=== PATIENT | female | born 1945 | race Caucasian/White ===

== ENCOUNTER 2019-06-25 08:29 | Day surgery (SDC) | payer MEDICARE, OTHER ==
[2019-06-25] MEDS: Polymyxin B/Trimethoprim 10 ML Bottle EYERT SCH ×4 (08:47→10:12)
[2019-06-25] MEDS: Brimonidine 0.2% Ophth Soln 15 ML Bottle EYERT SCH ×4 (08:56→10:12)
[2019-06-25] MEDS: Phenylephrine 2.5% Ophth Soln 2 ML Bot EYERT SCH ×6 (09:00→09:50)
--- NOTE | 2019-06-25 09:03 | PCM.PREANE ---
Preanesthetic Assessment - Anesthesia/Transfusion/Family Hx Anesthesia History: Prior Anesthesia Without Reaction Family History of Anesthesia Reaction: No Transfusion History: No Prior Transfusion(s) - Review of Systems General: Fatigue Pulmonary: No Symptoms (Daily Smoker. Occasional dry cough. ) Cardiovascular: No Symptoms (Hypertension, Elevated Cholesterol. Irregular heart beats once at her apointemnt, monitored and nothing was found. ) Gastrointestinal: No Symptoms Neurological: No Symptoms Other: Reports: None (Rheumatoid arthritis), Thyroid Problems (Hypothyroidism), Depression, Anxiety - Physical Assessment NPO Status Date: 06/24/19 NPO Status Time: 18:00 Vital Signs: 97.9F 132/78 63 96% 16 Height: 1.55 m Weight: 47.627 kg ASA Class: 2 Mental Status: Alert & Oriented x3 Airway Class: Mallampati = 2 Thyro-Mental Finger Breadths: 3 Mouth Opening Finger Breadths: 3 ROM/Head Extension: Full Lungs: Clear to Auscultation, Normal Respiratory Effort, Decreased Breath Sounds Cardiovascular: Regular Rate, Regular Rhythm - Allergies Allergies/Adverse Reactions: Allergies Allergy/AdvReac Type Severity Reaction Status Date / Time Penicillins Allergy Rash Verified 06/24/19 10:49 - Acknowledgements Anesthesia Type Planned: MAC Pt an Appropriate Candidate for the Planned Anesthesia: Yes Alternatives and Risks of Anesthesia Discussed w Pt/Guardian: Yes Pt/Guardian Understands and Agrees with Anesthesia Plan: Yes PreAnesthesia Questionnaire - HOME MEDS Home Medications: Home Meds Levothyroxine [Synthroid] 100 mcg PO DAILY 05/27/19 [History] PARoxetine HCl [Paroxetine HCl] 30 mg PO BEDTIME 05/27/19 [History] Simvastatin 20 mg PO DAILY 05/27/19 [History] clonazePAM [Clonazepam] 1 mg PO BID 05/27/19 [History] hydrOXYzine pamoate [Hydroxyzine Pamoate] 50 mg PO BEDTIME 05/27/19 [History] - CURRENT (IN HOUSE) MEDS Current Meds: Current Medications Brimonidine Tartrate (Brimonidine Tartrate 0.2% Ophth Soln) 0 ml EYERT ASDIRECTED JOS Stop: 06/25/19 18:01 Last Admin: 06/25/19 08:56 Dose: 1 drop Cefuroxime Sodium (Zinacef) 0 mg EYERT ASDIRECTED JOS Stop: 06/25/19 18:00 Lidocaine HCl (Xylocaine-Mpf 1%) 0 ml INJECT ASDIRECTED JOS Stop: 06/25/19 18:00 Phenylephrine HCl (Jose De Jesus-Synephrine 2.5% Ophth Soln) 0 ml EYERT ASDIRECTED JOS Stop: 06/25/19 18:00 Pilocarpine HCl (Pilocar 4% Ophth Soln) 0 ml EYERT ASDIRECTED JOS Stop: 06/25/19 18:00 Polymyxin/Trimethoprim Sulfate (Polytrim Ophth Soln) 0 ml EYERT ASDIRECTED JOS Stop: 06/25/19 18:00 Last Admin: 06/25/19 08:47 Dose: 1 drop Tetracaine HCl (Tetracaine 0.5% Steri-Unit Leana) 0 ml EYERT ASDIRECTED JOS Stop: 06/25/19 18:00 Tropicamide (Mydriacyl 1% Oph Soln) 0 ml EYERT ASDIRECTED JOS Stop: 06/25/19 18:00
[2019-06-25] MEDS: Tropicamide 1% Ophth Soln 15 ML Bottle EYERT SCH ×4 (09:04→09:38)
[2019-06-25] MEDS: Lidocaine 1% PF 2 ML SDV INJECT SCH ×2 (09:36→09:56)
[2019-06-25] MEDS: Tetracaine HCl/PF 0.5% 4 ML Bottle EYERT SCH ×3 (09:36→09:57)
[2019-06-25] MEDS: Cefuroxime 10 MG/ML SYRINGE EYERT SCH ×2 (09:37→10:11)
[2019-06-25] MEDS: Pilocarpine 4% Ophth Soln 15 ML Bot EYERT SCH ×2 (09:37→10:12)
--- NOTE | 2019-06-25 10:17 | PCM48HPAN ---
Post Anesthesia Note - EVALUATION WITHIN 48HRS OF ANESTHETIC Vital Signs in Normal Range: Yes Patient Participated in Evaluation: Yes Respiratory Function Stable: Yes Airway Patent: Yes Cardiovascular Function Stable: Yes Hydration Status Stable: Yes Pain Control Satisfactory: Yes Nausea and Vomiting Control Satisfactory: Yes Mental Status Recovered: Yes Vital Signs: Last Vital Signs Temp 36.6 C 06/25/19 08:30 Pulse 63 06/25/19 08:30 Resp 16 06/25/19 08:30 BP 132/78 06/25/19 08:30 Pulse Ox 96 06/25/19 08:30
== END 2019-06-25 10:25 | disposition home or self-care (01) ==
LOC: JD.SDS 08:29
PROVIDERS: ATTEND Ophthalmology
DX: H25.811 Combined forms of age-related cataract, right eye (principal); H21.81 Floppy iris syndrome; H35.373 Puckering of macula, bilateral; H35.341 Macular cyst, hole, or pseudohole, right eye; H02.834 Dermatochalasis of left upper eyelid; H02.831 Dermatochalasis of right upper eyelid; M19.90 Unspecified osteoarthritis, unspecified site; I10 Essential (primary) hypertension; E78.00 Pure hypercholesterolemia, unspecified; E03.9 Hypothyroidism, unspecified; F17.210 Nicotine dependence, cigarettes, uncomplicated; F41.9 Anxiety disorder, unspecified; F32.9 Major depressive disorder, single episode, unspecified; Z96.1 Presence of intraocular lens; Z79.899 Other long term (current) drug therapy; Z88.0 Allergy status to penicillin
CPT/HCPCS: 66982; C1780; J0697; J2001

== ENCOUNTER 2019-07-20 21:46 | Emergency (ER) | payer MEDICARE, OTHER ==
[2019-07-20] MEDS ORDERED: Lidocaine 1% 20 ML MDV INJECT ONE (22:22)
--- NOTE | 2019-07-20 22:23 | EDM.PDOC ---
ED HPI GENERAL MEDICAL PROBLEM - General Chief Complaint: Laceration Stated Complaint: FELL INTO GLASS [place] CABINIET BACK AND ARM LAC Time Seen by Provider: 07/20/19 22:02 Source of Information: Reports: Patient History Limitations: Reports: No Limitations - History of Present Illness INITIAL COMMENTS - FREE TEXT/NARRATIVE: This is a 74-year-old female. Apparently she fell backwards down some steps did not hit her head there was no loss of consciousness when she got to the bottom she landed on her buttocks and then fell back against a china cabinet. Causing a 8 cm laceration to her left upper back and multiple skin tears on her right upper extremity. She denies any neck pain or back pain. She does have a small abrasion to her left posterior parietal area as well. She says she feels fine she just has the skin tears and this cut. She states she is up-to-date with her tetanus. - Related Data Allergies Allergy/AdvReac Type Severity Reaction Status Date / Time Penicillins Allergy Rash Verified 07/20/19 21:58 Home Meds: Home Meds Levothyroxine [Synthroid] 100 mcg PO DAILY 05/27/19 [History] PARoxetine HCl [Paroxetine HCl] 30 mg PO BEDTIME 05/27/19 [History] Simvastatin 20 mg PO DAILY 05/27/19 [History] clonazePAM [Clonazepam] 1 mg PO BID 05/27/19 [History] hydrOXYzine pamoate [Hydroxyzine Pamoate] 50 mg PO BEDTIME 05/27/19 [History] Past Medical History HEENT History: Reports: Cataract [employer] History: Reports: Endocrine/Metabolic History: Reports: Hypothyroidism - Past Surgical History HEENT Surgical History: Reports: Cataract Surgery, Tonsillectomy GI Surgical History: Reports: Colonoscopy, Hernia, Abdominal, Polypectomy Female Surgical History: Reports: Hysterectomy Social & Family History - Tobacco Use Smoking Status *Q: Current Every Day Smoker Years of Tobacco use: 45 Packs/Tins Daily: 1 - Recreational Drug Use Recreational Drug Use: No ED ROS GENERAL - Review of Systems Review Of Systems: See Below Constitutional: Denies: Fever, Chills HEENT: Reports: No Symptoms Respiratory: Reports: No Symptoms Cardiovascular: Reports: No Symptoms Endocrine: Reports: Other (Hypothyroidism) GI/Abdominal: Reports: No Symptoms : Reports: No Symptoms Musculoskeletal: Reports: Other (As per history of present illness) Skin: Reports: Other (as per history of present illness) Neurological: Reports: No Symptoms Psychiatric: Reports: No Symptoms Hematologic/Lymphatic: Reports: No Symptoms ED EXAM, SKIN/RASH Exam: See Below Exam Limited By: No Limitations General Appearance: Alert, WD/WN, No Apparent Distress Eye Exam: Bilateral Eye: Normal Inspection Ears: Normal External Exam Nose: Normal Inspection Throat/Mouth: Normal Inspection, Normal Lips, Normal Voice, No Airway Compromise Head: Other (Small abrasion on the left posterior parietal area noted but no other scalp trauma) Neck: Normal Inspection, Supple, Non-Tender Respiratory/Chest: No Respiratory Distress, Lungs Clear, Normal Breath Sounds Cardiovascular: Regular Rate, Rhythm, No Murmur GI/Abdominal: Soft, Non-Tender Back Exam: Other (Left upper back just next to the upper scapula area she has an 8 cm flap laceration noted, bleeding is controlled. She is also noted to have a small abrasion contusion on her right mid scapula area but no lacerations.) Extremities: Other (Right upper extremity she has multiple skin tears including the posterior elbow the lateral proximal forearm the dorsal wrist dorsal hand 2 , the left upper extremity appears to be atraumatic, her lower extremities appear to be atraumatic) Neurological: Alert, Oriented, No Motor/Sensory Deficits Psychiatric: Normal Affect, Normal Mood Skin: Warm, Dry ED SKIN PROCEDURES - Laceration/Wound Repair Left Back Appearance: Subcutaneous Distal NVT: Neuro & Vascular Intact Anesthetic Type: Local Local Anesthesia - Lidocaine (Xylocaine): 1% Plain Local Anesthetic Volume: Other (18 cc) Skin Prep: Chlorhexidine (Hibiciens), Saline, Sterile Drape Exploration/Debridement/Repair: Wound Explored, Explored to Base Closed with: [place] Lac/Wound length In cm: 8.5 # of Sutures: 12 Drain Placement: No Sterile Dressing Applied: Nurse Tetanus Status Addressed: Yes Complications: No Course - Vital Signs Last Recorded V/S: Last Vital Signs Temp 96.5 F 07/20/19 21:58 Pulse 70 07/20/19 21:58 Resp 18 07/20/19 21:58 BP 139/82 07/20/19 21:58 Pulse Ox 93 L 07/20/19 21:58 - Orders/Labs/Meds Meds: Medications Discontinued Medications Generic Name Dose Route Start Last Admin Trade Name Freq PRN Reason Stop Dose Admin Lidocaine HCl 20 ml 07/20/19 22:22 07/20/19 22:53 Xylocaine 1% INJECT 07/20/19 22:23 Not Given ONETIME ONE Lidocaine HCl Confirm 07/20/19 22:24 07/20/19 22:53 Xylocaine 1% Administered 07/20/19 22:25 Not Given Dose 10 ml .ROUTE .STK-MED ONE Lidocaine HCl 10 ml 07/20/19 22:51 07/20/19 22:53 Xylocaine 1% INJECT 07/20/19 22:52 10 ml ONETIME ONE Administration Lidocaine HCl 10 ml 07/20/19 22:52 07/20/19 22:53 Xylocaine 1% INJECT 07/20/19 22:53 10 ml ONETIME ONE Administration Departure - Departure Time of Disposition: 22:50 Disposition: Home, Self-Care 01 Condition: Good Clinical Impression: Skin tear of right upper arm without complication Qualifiers: Encounter type: initial encounter Qualified Code(s): S41.111A - Laceration without foreign body of right upper arm, initial encounter Laceration of back wall of thorax without foreign body without penetration into thoracic cavity Qualifiers: Encounter type: initial encounter Laterality: left Qualified Code(s): S21.212A - Laceration without foreign body of left back wall of thorax without penetration into thoracic cavity, initial encounter Contusion, back Qualifiers: Encounter type: initial encounter Laterality: right Qualified Code(s): S20.221A - Contusion of right back wall of thorax, initial encounter Abrasion of back Qualifiers: Encounter type: initial encounter Laterality: right Qualified Code(s): S20.411A - Abrasion of right back wall of thorax, initial encounter Scalp abrasion Qualifiers: Encounter type: initial encounter Qualified Code(s): S00.01XA - Abrasion of scalp, initial encounter - Discharge Information *PRESCRIPTION DRUG MONITORING PROGRAM REVIEWED*: Not Applicable *COPY OF PRESCRIPTION DRUG MONITORING REPORT IN PATIENT GRACIE: Not Applicable Instructions: Skin Tear Care, [id number], Laceration Care, Adult Referrals: Consuelo Nino MD [Primary Care Provider] - Forms: ED Department Discharge Additional Instructions: Keep the wounds clean and dry for 48 hours, the Steri-Strips will naturally fall off in 4-5 days but soaking them in water and they will come off sooner so try to keep them dry, the messi need to come out in 7-10 days and follow up with your family doctor for their removal or return to the ER, watch for infection as in any signs of increased redness, yellow drainage or increased pain or swelling see your family doctor or return to the ER immediately, take Tylenol or ibuprofen as needed for the soreness and aches and pains
[2019-07-20] MEDS ORDERED: Lidocaine 1% 10 ML MDV ONE (22:24)
[2019-07-20] MEDS ORDERED: Lidocaine 1% 10 ML MDV INJECT ONE ×2 (22:51→22:52)
== END 2019-07-20 23:02 | disposition home or self-care (01) ==
LOC: JD.ED 21:46
DX: S51.011A Laceration without foreign body of right elbow, initial encounter (principal); S51.811A Laceration without foreign body of right forearm, initial encounter; S61.511A Laceration without foreign body of right wrist, initial encounter; S61.411A Laceration without foreign body of right hand, initial encounter; S21.212A Laceration without foreign body of left back wall of thorax without penetration into thoracic cavity, initial encounter; S20.221A Contusion of right back wall of thorax, initial encounter; S00.01XA Abrasion of scalp, initial encounter; E03.9 Hypothyroidism, unspecified; H26.9 Unspecified cataract; F17.210 Nicotine dependence, cigarettes, uncomplicated; Z88.0 Allergy status to penicillin; Z79.890 Hormone replacement therapy; W10.9XXA Fall (on) (from) unspecified stairs and steps, initial encounter; W22.03XA Walked into furniture, initial encounter
CPT/HCPCS: 12004; 99282; J2001; 99283